=== PATIENT | female | born 1965 | race Caucasian/White ===

== ENCOUNTER → 2018-08-16 | Outpatient (CLI) | payer OTHER ==
[~2018-08-16] MED LIST: BENTYL 10 MG CA10 M1 PO; BUMETANIDE0.25 MG/1 IM; BUMEX2 MG PO; HYDROCHLOROTHIA25 M2 PO; HYDROXYZINE HCL25 M1 PO; LISINOPRIL20 MG PO; NORCO 5-325 TA1 EACH PO; OMEPRAZOLE20 M2 PO
--- NOTE | 2018-08-16 14:35 | 2DMMODE ---
[place] [address] 2 D/M-MODE ECHOCARDIOGRAM Name: JORDENLESLY TYLER Room: [facility]#: [id number] Admission: 08/16/18 Attend Phys: Mayela Lentz Discharge: Date of : 65 Date of Service: 08/16/18 1434 Report #: [id number] THIS REPORT FOR: //name// APPROVED REPORT Study performed: 08/16/2018 10:35:15 EXAM: Comprehensive 2D, Doppler, and color-flow Echocardiogram Patient Location: Out-Patient Status: routine BSA: 2.39 HR: 79 bpm BP: 154/77 mmHg Other Information Study Quality: Fair Indications Congestive Heart Failure 2D Dimensions IVSd: 12.22 (7-11mm) LVOT Diam: 20.59 (18-24mm) LVDd: 46.81 mm PWd: 12.84 (7-11mm) Ascending Ao: 35.09 (22-36mm) LVDs: 27.49 (25-40mm) Aortic Root: 31.91 mm Volumes Left Atrial Volume (Systole) LA ESV Index: 14.60 mL/m2 Aortic Valve AoV Peak Sen.: 1.53 m/s AO Peak Gr.: 9.41 mmHg LVOT Max P.56 mmHg AO Mean Gr.: 5.63 mmHg LVOT Mean P.55 mmHg LVOT Max V: 1.18 m/s AO V2 VTI: 31.26 cm LVOT Mean V: 0.72 m/s NABILA (VTI): 2.40 cm2 LVOT V1 VTI: 22.56 cm Mitral Valve E/A Ratio: 0.95 MV Decel. Time: 223.77 ms MV E Max Sen.: 0.71 m/s MV PHT: 64.[place] [address] 2 D/M-MODE ECHOCARDIOGRAM Name: LESLY LEONARDO [facility] Room: [facility]#: [id number] Admission: 08/16/18 Attend Phys: Mayela Lentz Discharge: Date of : 65 Date of Service: 08/16/18 1434 Report #: [id number] MVA (PHT): 3.39 cm2 TDI E/Lateral E': 14.20 E/Medial E': 10.14 Medial E' Sen.: 0.07 m/s Lateral E' Sen.: 0.05 m/s Pulmonary Valve PV Peak Sen.: 1.32 m/s PV Peak Gr.: 6.94 mmHg Left Ventricle The left ventricle is normal size. There is normal LV segmental wall motion. Mild concentric left ventricular hypertrophy. Left ventricular systolic function is normal. LVEF is 55-60%. Transmitral Doppler flow pattern suggests impaired LV relaxation. Right Ventricle The right ventricle is normal size. The right ventricular systolic function is normal. Atria The left atrium size is normal. The right atrium size is normal. Aortic Valve The aortic valve is normal in structure. No aortic regurgitation is present. There is no aortic valvular stenosis. Mitral Valve The mitral valve is normal in structure. There is no mitral valve regurgitation noted. No evidence of mitral valve stenosis. Tricuspid Valve The tricuspid valve is normal in structure. There is no tricuspid valve regurgitation noted. Pulmonic Valve The pulmonary valve is normal in structure. There is no pulmonic valvular regurgitation. Great Vessels The aortic root is normal in size. IVC is normal in size and collapses >50% with inspiration. Pericardium There is no peric[place] [address] 2 D/M-MODE ECHOCARDIOGRAM Name: LESLY LEONARDO Room: [facility]#: [id number] Admission: 08/16/18 Attend Phys: Mayela Lentz Discharge: Date of : 65 Date of Service: 08/16/18 1434 Report #: [id number] <Conclusion> The left ventricle is normal size. Mild concentric left ventricular hypertrophy. Left ventricular systolic function is normal. LVEF is 55-60%. Transmitral Doppler flow pattern suggests impaired LV relaxation. IVC is normal in size and collapses >50% with inspiration. <ELECTRONICALLY SIGNED> By: Isrrael Navas MD, FACC 08/16/18 1434 1434 143 Isrrael Navas MD, FACC /INF
== END ==
LOC: M.CRD 10:00
DX: I50.9 Heart failure, unspecified (principal)